=== PATIENT | male | born 1995 | race Caucasian/White ===

== ENCOUNTER 2022-05-21 10:37 | Emergency (ER) | payer OTHER ==
[~2022-05-21] VITALS: Ht 185.4 cm; Wt 101.3 kg
[2022-05-21] MEDS ORDERED: MELO15TA28 PO (10:44)
[2022-05-21] MEDS ORDERED: ACET1TAB37 PO (10:44)
[2022-05-21] MEDS ORDERED: LIDOCAINE 1% MDV 20ML VIAL SC ONE (13:00)
[2022-05-21] MEDS ORDERED: CEPH500C PO (14:39)
[2022-05-21 14:59] VITALS: BP 165/92
== END 2022-05-21 15:06 | disposition home or self-care (01) ==
LOC: M ED 10:37
DX: S61.411A Laceration without foreign body of right hand, initial encounter (principal); S60.221A Contusion of right hand, initial encounter; W22.8XXA Striking against or struck by other objects, initial encounter; Y92.099 Unspecified place in other non-institutional residence as the place of occurrence of the external cause; F10.10 Alcohol abuse, uncomplicated; Z79.899 Other long term (current) drug therapy

== ENCOUNTER 2022-05-23 21:54 | Inpatient (IN) | payer OTHER ==
[~2022-05-23] VITALS: Ht 185.4 cm; Wt 104.4 kg
[~2022-05-23 21:54] MED LIST: ACET1TAB37 PO; CEPH500C PO; MELO15TA28 PO
[2022-05-24] VITALS (7 sets, daily range): BP systolic 142–170; BP diastolic 78–114
[2022-05-24 02:33] LABS: BLOOD UREA NITROGEN 9 MG/DL (7-18); CALCIUM LEVEL 9.7 MG/DL (8.5-10.1); CARBON DIOXIDE LEVEL 29 MEQ/L (21-32); CHLORIDE LEVEL 101 MEQ/L (98-107); CREATININE FOR GFR 0.92 MG/DL (0.70-1.30); GLOMERULAR FILTRATION RATE > 60.0 (>60); GLUCOSE, FASTING 87 MG/DL (70-100); POTASSIUM SERUM 4.1 MEQ/L (3.5-5.1); SODIUM LEVEL 135 MEQ/L (136-145)
[2022-05-24 02:36] LABS: BASO % 0.2 % (0.0-1.0); EOS # 0.2 10^3/uL (0.0-0.5); EOS % 1.6 % (0.0-3.0); HEMATOCRIT 41.8 % (42.0-52.0); HEMOGLOBIN 14.3 g/dl (13.5-17.5); LYMPH # 1.9 10^3/uL (1.5-5.0); LYMPH % 17.5 % (24.0-44.0); MEAN CORPUSCULAR HEMOGLOBIN 30.6 pg (27.0-33.0); MEAN CORPUSCULAR HGB CONC 34.2 g/dl (32.0-36.5); MEAN CORPUSCULAR VOLUME 89.5 fl (80.0-96.0); MONO # 0.8 10^3/uL (0.0-0.8); MONO % 7.5 % (2.0-8.0); NEUTROPHILS # 7.8 10^3/uL (1.5-8.5); NEUTROPHILS % 72.7 % (36.0-66.0); PLATELET COUNT, AUTOMATED 212 10^3/uL (150-450); RED BLOOD COUNT 4.67 10^6/uL (4.30-6.10); WHITE BLOOD COUNT 10.8 10^3/uL (4.0-10.0)
[2022-05-24] MEDS ORDERED: NS 1,000 ML IV SCH (03:55)
[2022-05-24] MEDS ORDERED: VANCOMYCIN HCL 2,000 MG in D5W 500 ML IV ONE (04:00)
[2022-05-24] MEDS ORDERED: AMPICILLIN SOD/SULBACTAM SOD 3 GM in D5W MINI-BAG PLUS 100 ML IV ONE (04:00)
[2022-05-24 04:36] LABS: ERYTHROCYTE SEDIMENTATION RATE 48 mm/hr (0-15)
[2022-05-24] MEDS ORDERED: ACETAMINOPHEN TAB 650MG DOSE (2X325MG) PO PRN (05:00)
[2022-05-24] MEDS ORDERED: VANCOMYCIN HCL 1,000 MG, VIAL MATE ADAPTER 1 EACH in NS 250 ML IV ONE ×6 (05:00)
[2022-05-24] MEDS ORDERED: KETOROLAC 30 MG/ML 1ML VIAL IV ONE (05:00)
[2022-05-24 05:28] LABS: INR 0.97; PROTHROMBIN TIME 13.3 SECONDS (12.7-14.5)
[2022-05-24 05:29] LABS: PARTIAL THROMBOPLASTIN TIME 34.2 SECONDS (25.9-37.0)
[2022-05-24] MEDS ORDERED: CEPH500C PO (05:43)
[2022-05-24] MEDS ORDERED: HOME MED LIST COMPLETE! XX SCH (05:45)
[2022-05-24 06:38] LABS: RSV AMPLIFICATION NEGATIVE (NEGATIVE)
[2022-05-24] MEDS: LR 1,000 ML IV SCH ×2 (07:09→14:06)
[2022-05-24] MEDS: AMPICILLIN SOD/SULBACTAM SOD 3 GM in D5W MINI-BAG PLUS 100 ML IV SCH ×2 (11:30→16:13)
[2022-05-24] MEDS: KETOROLAC 30 MG/ML 1ML VIAL IV PRN ×2 (11:31→23:03)
[2022-05-24] MEDS: VANCOMYCIN HCL 1,000 MG, VIAL MATE ADAPTER 1 EACH in NS 250 ML IV SCH ×2 (14:05→22:00)
[2022-05-24] MEDS: MORPHINE 4 MG/ML 1ML VIAL/SYRINGE IV PRN (16:13)
[2022-05-24] MEDS ORDERED: UNASYN 3GM VIAL As Ordered ONE (17:50)
[2022-05-24] MEDS ORDERED: MIDAZOLAM INJ 2MG/2ML VIAL (J2250 PER 1MG) As Ordered ONE (18:38)
[2022-05-24] MEDS ORDERED: propofoL 200 MG/20 ML VIAL As Ordered ONE (18:38)
[2022-05-24] MEDS ORDERED: LIDOCAINE 2% 100MG/5ML SDV (FOR ANES.) As Ordered ONE (18:38)
[2022-05-24] MEDS ORDERED: fentaNYL 100 MCG/2 ML INJECTION As Ordered ONE (18:38)
[2022-05-24] MEDS ORDERED: dexameTHASONE 4 MG/ML 1ML VIAL (J1100 PER 1MG) As Ordered ONE (18:39)
[2022-05-24] MEDS ORDERED: ONDANSETRON 4MG 2ML VIAL As Ordered ONE (18:39)
[2022-05-24] MEDS ORDERED: ACETAMINOPHEN 1000MG 100ML IV BTL (OFIRMEV) (J0131 PER 10MG) As Ordered ONE (18:53)
[2022-05-24] MEDS ORDERED: fentaNYL 100 MCG/2 ML INJECTION IV PRN (18:55)
[2022-05-24] MEDS ORDERED: ONDANSETRON 4MG 2ML VIAL IV PRN (18:55)
[2022-05-24] MEDS ORDERED: LR 1,000 ML IV SCH ×2 (18:55→20:10)
[2022-05-24] MEDS ORDERED: BUPIVACAINE LIPOSOME/PF 1.3% 20ML VIAL (13.3MG/ML)(EXPAREL) As Ordered ONE (19:00)
[2022-05-24] MEDS ORDERED: BUPIVACAINE HCL 0.25% 10ML VIAL As Ordered ONE (19:00)
[2022-05-24] MEDS ORDERED: TRANEXAMIC ACID 100 MG/ML 10ML VIAL As Ordered ONE (19:01)
[2022-05-24] MEDS: ONDANSETRON 4MG 2ML VIAL IV PRN ×2 (19:44→23:03)
[2022-05-24] MEDS: HYDROMORPHONE HCL 0.5 MG/ 0.5 ML SYRINGE (J1170 PER 1) IV PRN ×4 (19:45→20:22)
[2022-05-24] MEDS: oxyCODONE 5MG TAB PO PRN ×2 (19:56→20:25)
[2022-05-25] VITALS: BP 141/71
[2022-05-25] MEDS: AMPICILLIN SOD/SULBACTAM SOD 3 GM in D5W MINI-BAG PLUS 100 ML IV SCH ×4 (00:18→16:07)
[2022-05-25 01:00] VITALS: BP 132/67
[2022-05-25 04:51] LABS: BASO % 0.1 % (0.0-1.0); HEMATOCRIT 36.7 % (42.0-52.0); HEMOGLOBIN 12.4 g/dl (13.5-17.5); LYMPH # 0.7 10^3/uL (1.5-5.0); MEAN CORPUSCULAR HEMOGLOBIN 30.4 pg (27.0-33.0); MEAN CORPUSCULAR HGB CONC 33.8 g/dl (32.0-36.5); MONO # 0.7 10^3/uL (0.0-0.8); NEUTROPHILS # 6.8 10^3/uL (1.5-8.5); NEUTROPHILS % 83.5 % (36.0-66.0); PLATELET COUNT, AUTOMATED 241 10^3/uL (150-450); RED BLOOD COUNT 4.08 10^6/uL (4.30-6.10); WHITE BLOOD COUNT 8.2 10^3/uL (4.0-10.0)
[2022-05-25 05:20] LABS: BLOOD UREA NITROGEN 11 MG/DL (7-18); CALCIUM LEVEL 8.6 MG/DL (8.5-10.1); CARBON DIOXIDE LEVEL 29 MEQ/L (21-32); CHLORIDE LEVEL 103 MEQ/L (98-107); CREATININE FOR GFR 0.86 MG/DL (0.70-1.30); GLOMERULAR FILTRATION RATE > 60.0 (>60); GLUCOSE, FASTING 140 MG/DL (70-100); PHOSPHORUS LEVEL 3.8 MG/DL (2.5-4.9); POTASSIUM SERUM 4.4 MEQ/L (3.5-5.1); SODIUM LEVEL 136 MEQ/L (136-145)
[2022-05-25] MEDS: VANCOMYCIN HCL 1,000 MG, VIAL MATE ADAPTER 1 EACH in NS 250 ML IV SCH ×4 (05:31→22:02)
[2022-05-25 06:00] VITALS: BP 116/73
[2022-05-25] MEDS: KETOROLAC 30 MG/ML 1ML VIAL IV PRN ×2 (07:59→19:57)
[2022-05-25 10:00] VITALS: BP 132/70
[2022-05-25 14:30] VITALS: BP 138/67
[2022-05-25 22:00] VITALS: BP 139/70
[2022-05-25] MEDS: VANCOMYCIN HCL 500 MG in D5W MINI-BAG PLUS 100 ML IV SCH (23:00)
[2022-05-26] MEDS: AMPICILLIN SOD/SULBACTAM SOD 3 GM in D5W MINI-BAG PLUS 100 ML IV SCH ×4 (00:11→19:02)
[2022-05-26 02:00] VITALS: BP 131/72
[2022-05-26] MEDS: VANCOMYCIN HCL 1,000 MG, VIAL MATE ADAPTER 1 EACH in NS 250 ML IV SCH ×2 (05:02→10:00)
[2022-05-26] MEDS: KETOROLAC 30 MG/ML 1ML VIAL IV PRN ×2 (05:08→16:30)
[2022-05-26 06:00] VITALS: BP 150/80
[2022-05-26 06:19] LABS: HEMATOCRIT 33.1 % (42.0-52.0); HEMOGLOBIN 11.2 g/dl (13.5-17.5); MEAN CORPUSCULAR HEMOGLOBIN 30.5 pg (27.0-33.0); MEAN CORPUSCULAR HGB CONC 33.8 g/dl (32.0-36.5); MEAN CORPUSCULAR VOLUME 90.2 fl (80.0-96.0); PLATELET COUNT, AUTOMATED 178 10^3/uL (150-450); RED BLOOD COUNT 3.67 10^6/uL (4.30-6.10); WHITE BLOOD COUNT 5.4 10^3/uL (4.0-10.0)
[2022-05-26] MEDS: VANCOMYCIN HCL 500 MG in D5W MINI-BAG PLUS 100 ML IV SCH ×3 (06:26→17:57)
[2022-05-26 07:18] LABS: BLOOD UREA NITROGEN 15 MG/DL (7-18); CALCIUM LEVEL 8.4 MG/DL (8.5-10.1); CARBON DIOXIDE LEVEL 29 MEQ/L (21-32); CHLORIDE LEVEL 111 MEQ/L (98-107); CREATININE FOR GFR 0.88 MG/DL (0.70-1.30); GLOMERULAR FILTRATION RATE > 60.0 (>60); GLUCOSE, FASTING 88 MG/DL (70-100); MAGNESIUM LEVEL 1.9 MG/DL (1.8-2.4); PHOSPHORUS LEVEL 3.8 MG/DL (2.5-4.9); SODIUM LEVEL 142 MEQ/L (136-145)
[2022-05-26 10:00] VITALS: BP 154/65
[2022-05-26] MEDS: ENOXAPARIN 40MG/0.4ML SYRINGE (J1650 PER 10MG) SC SCH (11:37)
[2022-05-26 12:03] LABS: ERYTHROCYTE SEDIMENTATION RATE 58 mm/hr (0-15)
[2022-05-26 14:00] VITALS: BP 164/78
[2022-05-26] MEDS: VANCOMYCIN HCL 750 MG, VIAL MATE ADAPTER 1 EACH in D5W 250 ML IV SCH ×2 (16:29→23:13)
[2022-05-26 21:32] VITALS: BP 168/78
[2022-05-27] MEDS: VANCOMYCIN HCL 500 MG in D5W MINI-BAG PLUS 100 ML IV SCH ×5 (00:17→23:33)
[2022-05-27] MEDS: AMPICILLIN SOD/SULBACTAM SOD 3 GM in D5W MINI-BAG PLUS 100 ML IV SCH ×4 (00:39→20:36)
[2022-05-27] MEDS: KETOROLAC 30 MG/ML 1ML VIAL IV PRN ×2 (01:46→17:18)
[2022-05-27] MEDS ORDERED: traZODone 25MG PER 1/2 TABLET PO ONE (02:00)
[2022-05-27] MEDS: VANCOMYCIN HCL 750 MG, VIAL MATE ADAPTER 1 EACH in D5W 250 ML IV SCH ×4 (05:12→22:09)
[2022-05-27 06:14] VITALS: BP 154/83
[2022-05-27 07:13] LABS: HEMATOCRIT 34.7 % (42.0-52.0); HEMOGLOBIN 11.8 g/dl (13.5-17.5); MEAN CORPUSCULAR HEMOGLOBIN 30.1 pg (27.0-33.0); MEAN CORPUSCULAR VOLUME 88.5 fl (80.0-96.0); PLATELET COUNT, AUTOMATED 225 10^3/uL (150-450); RED BLOOD COUNT 3.92 10^6/uL (4.30-6.10); WHITE BLOOD COUNT 5.8 10^3/uL (4.0-10.0)
[2022-05-27 07:56] LABS: BLOOD UREA NITROGEN 11 MG/DL (7-18); CALCIUM LEVEL 8.6 MG/DL (8.5-10.1); CARBON DIOXIDE LEVEL 27 MEQ/L (21-32); CHLORIDE LEVEL 106 MEQ/L (98-107); GLOMERULAR FILTRATION RATE > 60.0 (>60); GLUCOSE, FASTING 112 MG/DL (70-100); MAGNESIUM LEVEL 1.9 MG/DL (1.8-2.4); PHOSPHORUS LEVEL 4.6 MG/DL (2.5-4.9); POTASSIUM SERUM 3.9 MEQ/L (3.5-5.1); SODIUM LEVEL 139 MEQ/L (136-145)
[2022-05-27] MEDS: ENOXAPARIN 40MG/0.4ML SYRINGE (J1650 PER 10MG) SC SCH (08:13)
[2022-05-27 10:35] LABS: ERYTHROCYTE SEDIMENTATION RATE 54 mm/hr (0-15)
[2022-05-27 14:00] VITALS: BP 145/78
[2022-05-27 21:37] VITALS: BP 155/80
[2022-05-28] MEDS: KETOROLAC 30 MG/ML 1ML VIAL IV PRN ×2 (00:25→21:32)
[2022-05-28] MEDS: AMPICILLIN SOD/SULBACTAM SOD 3 GM in D5W MINI-BAG PLUS 100 ML IV SCH ×4 (00:25→18:47)
[2022-05-28] MEDS: VANCOMYCIN HCL 750 MG, VIAL MATE ADAPTER 1 EACH in D5W 250 ML IV SCH ×4 (04:21→22:04)
[2022-05-28] MEDS: VANCOMYCIN HCL 500 MG in D5W MINI-BAG PLUS 100 ML IV SCH ×4 (05:47→23:30)
[2022-05-28 06:00] VITALS: BP_SYST 124; BP_SYST 151; BP_DIAS 67; BP_DIAS 77
[2022-05-28] MEDS: ENOXAPARIN 40MG/0.4ML SYRINGE (J1650 PER 10MG) SC SCH (08:17)
[2022-05-28 14:00] VITALS: BP 160/90
[2022-05-28] MEDS ORDERED: amLODIPine 5 MG TAB PO ONE (14:00)
[2022-05-28 21:35] VITALS: BP 147/78
[2022-05-29] MEDS: AMPICILLIN SOD/SULBACTAM SOD 3 GM in D5W MINI-BAG PLUS 100 ML IV SCH ×6 (00:29→23:05)
[2022-05-29] MEDS: VANCOMYCIN HCL 750 MG, VIAL MATE ADAPTER 1 EACH in D5W 250 ML IV SCH (04:18)
[2022-05-29] MEDS: VANCOMYCIN HCL 500 MG in D5W MINI-BAG PLUS 100 ML IV SCH (05:22)
[2022-05-29 06:00] VITALS: BP 147/85
[2022-05-29 06:13] LABS: BASO % 0.5 % (0.0-1.0); EOS # 0.4 10^3/uL (0.0-0.5); EOS % 5.2 % (0.0-3.0); HEMATOCRIT 38.2 % (42.0-52.0); HEMOGLOBIN 12.9 g/dl (13.5-17.5); LYMPH % 27.7 % (24.0-44.0); MEAN CORPUSCULAR HEMOGLOBIN 29.8 pg (27.0-33.0); MEAN CORPUSCULAR HGB CONC 33.8 g/dl (32.0-36.5); MEAN CORPUSCULAR VOLUME 88.2 fl (80.0-96.0); MONO # 0.7 10^3/uL (0.0-0.8); MONO % 9.9 % (2.0-8.0); NEUTROPHILS # 4.1 10^3/uL (1.5-8.5); NEUTROPHILS % 56.4 % (36.0-66.0); PLATELET COUNT, AUTOMATED 303 10^3/uL (150-450); RED BLOOD COUNT 4.33 10^6/uL (4.30-6.10); WHITE BLOOD COUNT 7.3 10^3/uL (4.0-10.0)
[2022-05-29 06:36] LABS: BLOOD UREA NITROGEN 13 MG/DL (7-18); C REACTIVE PROTEIN QUANTITATIV 1.22 MG/DL (0.00-0.30); CARBON DIOXIDE LEVEL 27 MEQ/L (21-32); CHLORIDE LEVEL 108 MEQ/L (98-107); CREATININE FOR GFR 1.08 MG/DL (0.70-1.30); ERYTHROCYTE SEDIMENTATION RATE 58 mm/hr (0-15); GLOMERULAR FILTRATION RATE > 60.0 (>60); GLUCOSE, FASTING 85 MG/DL (70-100); PHOSPHORUS LEVEL 4.4 MG/DL (2.5-4.9); POTASSIUM SERUM 4.3 MEQ/L (3.5-5.1); SODIUM LEVEL 138 MEQ/L (136-145)
[2022-05-29] MEDS: ENOXAPARIN 40MG/0.4ML SYRINGE (J1650 PER 10MG) SC SCH (07:57)
[2022-05-29] MEDS: LACTOBACILLUS ACIDOPHILUS CAP (BACID) PO SCH (08:08)
[2022-05-29] MEDS: amLODIPine 5 MG TAB PO SCH (08:09)
[2022-05-29] MEDS ORDERED: LIDOCAINE 1% SDV 30ML VIAL As Ordered ONE (12:15)
[2022-05-29] MEDS: BUPIVACAINE/EPIN 0.25% 30 ML VIAL As Ordered ONE (12:18)
[2022-05-29] MEDS: LIDOCAINE 1% SDV 30ML VIAL As Ordered ONE (12:18)
[2022-05-29] MEDS ORDERED: UNASYN 3GM VIAL As Ordered ONE (12:39)
[2022-05-29] MEDS ORDERED: KETOROLAC 60MG 2ML VIAL As Ordered ONE (13:02)
[2022-05-29] MEDS ORDERED: LIDOCAINE 2% 100MG/5ML SDV (FOR ANES.) As Ordered ONE (13:02)
[2022-05-29] MEDS ORDERED: MIDAZOLAM INJ 2MG/2ML VIAL (J2250 PER 1MG) As Ordered ONE (13:02)
[2022-05-29] MEDS ORDERED: propofoL 200 MG/20 ML VIAL As Ordered ONE (13:02)
[2022-05-29] MEDS ORDERED: ONDANSETRON 4MG 2ML VIAL As Ordered ONE (13:02)
[2022-05-29] MEDS ORDERED: fentaNYL 100 MCG/2 ML INJECTION As Ordered ONE ×2 (13:02→13:04)
[2022-05-29] MEDS ORDERED: fentaNYL 100 MCG/2 ML INJECTION IV PRN (13:45)
[2022-05-29] MEDS ORDERED: ONDANSETRON 4MG 2ML VIAL IV PRN (13:45)
[2022-05-29] MEDS ORDERED: LR 1,000 ML IV SCH (13:45)
[2022-05-29] MEDS ORDERED: oxyCODONE 5MG TAB PO PRN (13:45)
[2022-05-29] MEDS ORDERED: MORPHINE 2 MG/ML 1ML VIAL IV PRN (13:45)
[2022-05-29 14:15] VITALS: BP 148/70
[2022-05-29] MEDS ORDERED: traZODone 25MG PER 1/2 TABLET PO PRN (19:20)
[2022-05-29 21:44] VITALS: BP 157/88
[2022-05-30 06:00] VITALS: BP 127/80
[2022-05-30] MEDS: AMPICILLIN SOD/SULBACTAM SOD 3 GM in D5W MINI-BAG PLUS 100 ML IV SCH ×3 (06:30→17:40)
[2022-05-30] MEDS: MORPHINE 4 MG/ML 1ML VIAL/SYRINGE IV PRN (06:35)
[2022-05-30 07:12] LABS: HEMATOCRIT 39.8 % (42.0-52.0); HEMOGLOBIN 13.5 g/dl (13.5-17.5); MEAN CORPUSCULAR HGB CONC 33.9 g/dl (32.0-36.5); MEAN CORPUSCULAR VOLUME 88.4 fl (80.0-96.0); PLATELET COUNT, AUTOMATED 305 10^3/uL (150-450); WHITE BLOOD COUNT 6.2 10^3/uL (4.0-10.0)
[2022-05-30 07:58] LABS: BLOOD UREA NITROGEN 15 MG/DL (7-18); CALCIUM LEVEL 9.1 MG/DL (8.5-10.1); CARBON DIOXIDE LEVEL 28 MEQ/L (21-32); CHLORIDE LEVEL 107 MEQ/L (98-107); CREATININE FOR GFR 0.95 MG/DL (0.70-1.30); GLOMERULAR FILTRATION RATE > 60.0 (>60); GLUCOSE, FASTING 90 MG/DL (70-100); MAGNESIUM LEVEL 2.3 MG/DL (1.8-2.4); POTASSIUM SERUM 4.4 MEQ/L (3.5-5.1); SODIUM LEVEL 140 MEQ/L (136-145)
[2022-05-30 08:31] LABS: ERYTHROCYTE SEDIMENTATION RATE 48 mm/hr (0-15)
[2022-05-30] MEDS: LACTOBACILLUS ACIDOPHILUS CAP (BACID) PO SCH (09:23)
[2022-05-30] MEDS: ENOXAPARIN 40MG/0.4ML SYRINGE (J1650 PER 10MG) SC SCH (09:24)
[2022-05-30] MEDS: amLODIPine 5 MG TAB PO SCH (09:26)
[2022-05-30 14:18] VITALS: BP 125/72
[2022-05-30] MEDS ORDERED: TETANUS/DIPHTHERIA TOX ADSORB ADULT 0.5ML SYR/VIAL IM ONE (17:10)
[2022-05-30] MEDS: AUGMENTIN 875 MG TAB PO SCH (22:44)
[2022-05-30 23:33] VITALS: BP 139/87
[2022-05-31 06:00] VITALS: BP 136/82
[2022-05-31] MEDS: AUGMENTIN 875 MG TAB PO SCH (09:23)
[2022-05-31] MEDS: LACTOBACILLUS ACIDOPHILUS CAP (BACID) PO SCH (09:23)
[2022-05-31 09:24] VITALS: BP 128/69
[2022-05-31] MEDS: ENOXAPARIN 40MG/0.4ML SYRINGE (J1650 PER 10MG) SC SCH (09:24)
[2022-05-31] MEDS: amLODIPine 5 MG TAB PO SCH (09:24)
[2022-05-31] MEDS ORDERED: AMOX875T2 PO (11:35)
[2022-05-31] MEDS ORDERED: RISATAB3 PO (11:35)
[2022-05-31] MEDS ORDERED: AMLO1TAB24 PO (12:15)
== END 2022-05-31 15:15 | disposition home or self-care (01) | DRG 983 ==
LOC: M ED 21:54 → M ED INP 05-24 04:56 → ENRESERV 05-24 05:40 → M MS5PR 05-24 07:00 → OBSVTOIN 05-26 16:58
PROVIDERS: ADMIT Internal Medicine; ATTEND Internal Medicine
PROC: 0PBP0ZZ Excision of Right Metacarpal, Open Approach (ICD-10-PCS; principal; 2022-05-25)
PROC: 0LD70ZZ Extraction of Right Hand Tendon, Open Approach (ICD-10-PCS; 2022-05-29)
DX: L02.511 Cutaneous abscess of right hand (principal); M65.841 Other synovitis and tenosynovitis, right hand; I10 Essential (primary) hypertension; Z79.2 Long term (current) use of antibiotics; F17.200 Nicotine dependence, unspecified, uncomplicated; Z20.822 Contact with and (suspected) exposure to COVID-19

== ENCOUNTER 2022-06-08 13:23 | Day surgery (SDC) | payer OTHER ==
[~2022-06-08] VITALS: Ht 185.4 cm; Wt 98.8 kg
[~2022-06-08 13:23] MED LIST changes: +AMLO1TAB24 PO; +AMOX875T2 PO; +RISATAB3 PO; +ceFAZolin SOD 2 GM in IV 1 EA IV ONE
[2022-06-08] MEDS ORDERED: MIDAZOLAM INJ 2MG/2ML VIAL (J2250 PER 1MG) As Ordered ONE (13:27)
[2022-06-08] MEDS ORDERED: fentaNYL 100 MCG/2 ML INJECTION As Ordered ONE (13:29)
[2022-06-08] MEDS ORDERED: dexameTHASONE 4 MG/ML 1ML VIAL (J1100 PER 1MG) As Ordered ONE ×2 (13:30→15:10)
[2022-06-08] MEDS ORDERED: propofoL 200 MG/20 ML VIAL As Ordered ONE (13:31)
[2022-06-08] MEDS ORDERED: LIDOCAINE 2% 100MG/5ML SDV (FOR ANES.) As Ordered ONE (13:31)
[2022-06-08] MEDS ORDERED: LR 1,000 ML IV SCH ×2 (14:25→16:35)
[2022-06-08] MEDS ORDERED: BUPIVACAINE HCL 0.5% 30ML VIAL As Ordered ONE (14:38)
[2022-06-08] MEDS ORDERED: ACETAMINOPHEN 1000MG 100ML IV BTL (OFIRMEV) (J0131 PER 10MG) As Ordered ONE (15:15)
[2022-06-08] MEDS ORDERED: KETOROLAC 60MG 2ML VIAL As Ordered ONE (15:17)
[2022-06-08] MEDS ORDERED: ONDANSETRON 4MG 2ML VIAL As Ordered ONE (15:17)
[2022-06-08] MEDS ORDERED: POLYSPORIN TOPICAL OINTMENT 15GM As Ordered ONE (16:06)
[2022-06-08] MEDS ORDERED: PERC5TAB12 PO (16:30)
[2022-06-08] MEDS ORDERED: fentaNYL 100 MCG/2 ML INJECTION IV PRN (16:35)
[2022-06-08] MEDS ORDERED: oxyCODONE 5MG TAB PO PRN (16:35)
[2022-06-08] MEDS ORDERED: METOCLOPRAMIDE INJ 10MG/2ML VIAL (J2765 PER 1) IV PRN (16:35)
[2022-06-08] MEDS ORDERED: ONDANSETRON 4MG 2ML VIAL IV PRN (16:35)
[2022-06-08 17:35] VITALS: BP 160/92
== END 2022-06-08 17:45 | disposition home or self-care (01) ==
LOC: M SDC 13:23
PROVIDERS: ATTEND Orthopaedic Surgery Hand Surgery
DX: S66.302A Unspecified injury of extensor muscle, fascia and tendon of right middle finger at wrist and hand level, initial encounter (principal); Y04.1XXA Assault by human bite, initial encounter; Y92.89 Other specified places as the place of occurrence of the external cause; Y93.9 Activity, unspecified; Y99.9 Unspecified external cause status
CPT/HCPCS: 26420; 26516; 87635; J0131; J0690; J1100; J1885; J2250; J2405; J3010

== ENCOUNTER → 2022-06-14 | Outpatient (REF) | payer OTHER ==
[~2022-06-14] MED LIST changes: +PERC5TAB12 PO; -ceFAZolin SOD 2 GM in IV 1 EA IV ONE
[2022-06-14 20:43] LABS: BASO % 0.4 % (0.0-1.0); EOS # 0.2 10^3/uL (0.0-0.5); EOS % 3.5 % (0.0-3.0); HEMATOCRIT 44.7 % (42.0-52.0); HEMOGLOBIN 15.2 g/dl (13.5-17.5); LYMPH # 1.8 10^3/uL (1.5-5.0); LYMPH % 31.3 % (24.0-44.0); MEAN CORPUSCULAR HEMOGLOBIN 30.3 pg (27.0-33.0); MEAN CORPUSCULAR VOLUME 89.2 fl (80.0-96.0); MONO # 0.5 10^3/uL (0.0-0.8); MONO % 8.1 % (2.0-8.0); NEUTROPHILS # 3.2 10^3/uL (1.5-8.5); NEUTROPHILS % 56.5 % (36.0-66.0); PLATELET COUNT, AUTOMATED 292 10^3/uL (150-450); RED BLOOD COUNT 5.01 10^6/uL (4.30-6.10); WHITE BLOOD COUNT 5.7 10^3/uL (4.0-10.0)
[2022-06-14 21:48] LABS: ERYTHROCYTE SEDIMENTATION RATE 7 mm/hr (0-15)
== END ==
LOC: M WUC 20:06
PROVIDERS: ATTEND Internal Medicine Infectious Disease
DX: L02.511 Cutaneous abscess of right hand (principal)